=== PATIENT | female | born 1990 | race Caucasian/White ===

== ENCOUNTER → 2018-02-19 | Outpatient (CLI) | payer OTHER | LOC: LAB.R 09:36 | PROVIDERS: ATTEND Physician Assistant Medical | DX: Z20.2 Contact with and (suspected) exposure to infections with a predominantly sexual mode of transmission (principal) | CPT/HCPCS: 87491; 87591 ==

== ENCOUNTER 2018-02-20 07:16 | Outpatient (CLI) | payer OTHER | END 2018-02-20 07:17 | disposition home or self-care (01) | LOC: LAB.F 07:16 | PROVIDERS: ATTEND Physician Assistant Medical | DX: E03.9 Hypothyroidism, unspecified (principal); Z20.2 Contact with and (suspected) exposure to infections with a predominantly sexual mode of transmission | CPT/HCPCS: 36415; 84443; 87491; 87591 ==

== ENCOUNTER 2020-04-20 12:19 | Outpatient (CLI) | payer OTHER | END 2020-04-20 12:20 | disposition home or self-care (01) | LOC: COV 12:19 | PROVIDERS: ATTEND Family Medicine | DX: Z20.828 Contact with and (suspected) exposure to other viral communicable diseases (principal) ==